=== PATIENT | female | born 2005 | race Hispanic/Latino ===

== ENCOUNTER 2024-08-06 21:48 | Emergency (ER) | payer OTHER ==
[~2024-08-06] VITALS: Ht 167.6 cm; Wt 145.1 kg
[2024-08-06 21:51] VITALS: BP 156/102; PULSE 94; RESP 20; TEMP 98.7
[2024-08-06] MEDS ORDERED: SULF1TAB42 PO (22:49)
[2024-08-06] MEDS: cefTRIAXone 1G VIAL IM ONE (22:52)
== END 2024-08-06 23:01 | disposition home or self-care (01) ==
LOC: EDH 21:48
DX: N61.1 Abscess of the breast and nipple (principal); Z79.899 Other long term (current) drug therapy
CPT/HCPCS: 99283; 96372; J0696